=== PATIENT | male | born 1965 | race Caucasian/White ===

== ENCOUNTER → 2018-02-19 20:00 | Outpatient (CLI) | payer MEDICAID, SELFPAY ==
[2018-02-19] MEDS: Zolpidem Tartrate 5 MG Tablet PO (21:45)
== END ==
PROVIDERS: Family Provider Family Medicine; PCP Family Medicine
DX: G47.10 Hypersomnia, unspecified (principal); R06.83 Snoring
CPT/HCPCS: 95810

== ENCOUNTER → 2018-04-22 20:09 | Outpatient (CLI) | payer MEDICARE, MEDICAID, SELFPAY ==
[2018-04-22] MEDS: Zolpidem Tartrate 5 MG Tablet PO (22:00)
== END ==
PROVIDERS: Family Provider Family Medicine; PCP Family Medicine; Referring Provider Internal Medicine Pulmonary Disease; Visit Provider Internal Medicine Pulmonary Disease
DX: G47.33 Obstructive sleep apnea (adult) (pediatric) (principal)
CPT/HCPCS: 95811

== ENCOUNTER 2019-02-18 12:16 | Emergency (ER) | payer MEDICARE, MEDICAID, SELFPAY ==
[2019-02-18 12:20] VITALS: BP 129/81; PULSE 71; RESP 17; TEMP 36.8; O2SAT 98; BMI 25.9
--- NOTE | 2019-02-18 12:38 | CT_ITS ---
STUDY: CT ABDOMEN AND PELVIS WITH CONTRAST REASON FOR EXAM: Male, 53 years old. Epigastric pain. Diarrhea. RADIATION DOSAGE (If Supplied By Facility): CTDIvol = ( 16.99 ) mGy, DLP = ( 728.39 ) mGycm TECHNIQUE: Transaxial images were obtained from the dome of the diaphragm to the symphysis pubis without oral contrast. 100ml Isovue 370 was administered. Sagittal and coronal images were reconstructed. Individualized dose optimization techniques were used for this CT. COMPARISON: None. FINDINGS: The visualized lung bases are unremarkable. The visualized portions of the heart are within normal limits. Normal liver. There are surgical clips in the gallbladder fossa consistent with a prior cholecystectomy. Normal spleen. Normal pancreas. Normal bilateral adrenal glands. Normal right kidney. Normal left kidney. Normal visualized stomach. Normal small intestine. Normal colon. The appendix is visualized and appears normal. There is diffuse atherosclerotic calcification of the abdominal aorta, without a demonstrated aneurysm. Normal inferior vena cava. Normal retroperitoneum. Normal urinary bladder. There are prostatic calcifications. Normal abdominal wall. There are degenerative changes of the visualized lumbar spine. CT/Abdomen/Pelvis W IV Cont ONLY IMPRESSION: Status post cholecystectomy. No acute abnormality is seen. Electronically Signed: Tyrone Escalante, at 13:50 EST , Service support ,
[2019-02-18 13:03] LABS: Absolute Lymphocyte Count 3.26 X10^3/uL (0.83-4.51); Basophil# 0.07 X10^3/uL; Basophil% 0.7 % (0-1); Eosinophil# 0.44 X10^3/uL; Eosinophils% 4.6 % (0-5); Hematocrit 49.8 % (40-54); Lymphocyte # 3.26 X10^3/ul (4.0); Mean Corp Hgb Conc 34.1 g/dL (32-36); Mean Corpuscular Hgb 30.9 pg (27.0-32.0); Mean Corpuscular Volume 90.4 fL (80-94); Mean Platelet Vol. 10.2 fl (6.2-12.0); Monocyte# 0.82 X10^3/uL; Monocyte% 8.5 % (0-10); NRBC Flagged by Analyzer 0 % (0-5); Neutrophil # 4.97 X10^3/uL (2.7-7.7); Neutrophil % 51.8 % (47-70); Platelet Count 254 K/mm3 (150-450); RBC Distribution Width CV 13.2 % (11.6-14.6); RBC Distribution Width SD 43.7 fl (35.1-43.9); Red Blood Count 5.51 M/mm3 (4.6-6.2); White Blood Count 9.6 K/mm3 (4.4-11.0)
[2019-02-18 13:12] LABS: ALB/GLOB Ratio 1.1 RATIO (0.9-2.4); AST(SGOT) 24 U/L (15-37); Alanine Aminotransfer ALT/SGPT 25 U/L (16-61); Albumin, Serum 4.1 g/dL (3.2-5.0); Alkaline Phosphatase 105 U/L (45-117); Anion Gap 8 (5-15); BUN 20 mg/dL (7-18); BUN/Creat Ratio 20.4 RATIO (10-20); Calcium,Total 9.1 mg/dL (8.5-10.1); Chloride 108 mmol/L (98-107); Creatinine, Serum 0.98 mg/dL (0.70-1.30); EST Glomerular Filtration Rate 85 mL/min (>60); Est Glom Filt Rate - Afr Amer 103 mL/min (>60); Estimated Creatinine Clearance 91.04 ml/min; Globulin 3.9 g/dL (2.2-4.2); Glucose 88 mg/dL (74-106); Lipase 69 U/L (73-393); Sodium Level 139 mmol/L (136-145)
[2019-02-18 13:39] VITALS: BP 112/80; BP 122/92; BP 124/95; PULSE 59; PULSE 65; PULSE 75
[2019-02-18] MEDS: 0.9% Normal Saline 1,000 ML 1000 ML IV (13:42)
--- NOTE | 2019-02-18 14:36 | ED.DCSUM_ITS ---
- ER Visit Summary Date of Service: 02/18/19 Chief Complaint: Blood in stool History of Present Illness: The patient is a [address] iglesias. He reports that he has had chronic abdominal pain and diarrhea. He reports that both of these have been present for the past 5 to 6 months. He reports that he has diarrhea 5-6 times a day. He states that today he had one maroon-colored stool. He had not had blood previously. Patient reports that he has a diffuse sharp pain that is 9 out of 10 at worst and 3-10 currently. Is worsened by food and relieved by nothing. He said nausea without any vomiting. He has not had any work-up for this. He reports that he is scheduled to see director of strategic programs in [place] on March 10. He had a colonoscopy 4 to [address] White. No personal family history of Crohn's or ulcerative colitis. Physical Examination: Vitals: Stable. Afebrile. General: Well-nourished and well-developed. Head: Normocephalic atraumatic. Neck: Supple, no lymphadenopathy. No JVD. Nontender. Cardiovascular: Regular rate and rhythm. No murmurs. Respiratory: No respiratory distress. Clear to auscultation bilaterally. Abdominal: Soft, mild epigastric and suprapubic tenderness to palpation, nondistended, normal bowel sounds. No guarding, rebound, or peritoneal signs. Back: Nontender. Extremities: Nontender, no edema. Skin: Normal color, no rash. Neurologic: Alert and oriented ?3. Cranial nerves II through XII are intact. Normal strength and sensation. Psych: Normal affect. Test Results: CBC shows a hemoglobin of 17. Chem-7 shows a chloride 108 and BUN of 20. LFTs are normal. Lipase is normal. Clinical Impression(s) from Imaging Studies Abdomen/Pelvis CT 02/18/19 12:38 IMPRESSION: Status post cholecystectomy. No acute abnormality is seen. Electronically Signed: Tyrone Escalante, at 13:50 EST , Service support , Emergency Department Course and Treatment: Patient is resting comfortably. He refused pain and nausea medications. Treatment Plan: I discussed the patient his lab results. He does understand that is unlikely that he will get in to see director of strategic programs any sooner than previously scheduled. He is instructed to follow-up as scheduled. Return to the emergency department for worsening bleeding, worsening pain, or any other concerns. Disposition: To home in improved and stable condition. Impression: 1. Abdominal pain, chronic. 2. Diarrhea, chronic. 3. Stable lower GI bleed. This note was generated with [employer] dictation software. It may contain incorrect words, spelling, and punctuation that were not noted in review of the chart prior to signing ED Disposition - Plan for ED Patient: Disposition: Home or Assisted Living Instructions: RECTAL BLEED, Stable Referrals: Michael Ron MD [Primary Care Provider] - 3-5 Days Additional Instructions: Follow up with [facility] [employer] as soon as possible.
[2019-02-18 14:50] VITALS: BP 118/75; PULSE 64; RESP 16; O2SAT 97
== END 2019-02-18 14:50 | disposition home or self-care (01) ==
PROVIDERS: Emergency Provider Emergency Medicine; Family Provider Family Medicine; PCP Family Medicine
DX: K92.1 Melena (principal); K52.9 Noninfective gastroenteritis and colitis, unspecified; R10.13 Epigastric pain; G89.29 Other chronic pain; J44.9 Chronic obstructive pulmonary disease, unspecified; F17.200 Nicotine dependence, unspecified, uncomplicated
CPT/HCPCS: 74177; 80053; 83690; 85025; 99284; Q9967

== ENCOUNTER → 2022-03-21 | Outpatient (CLI) | payer MEDICARE, SELFPAY ==
--- NOTE | 2022-03-21 14:52 | CT_ITS ---
STUDY: LOW DOSE CT LUNG CANCER SCREENING REASON FOR EXAM: Male, 56 years old. SMOKER. The patient smoked 2 packs per day for 42 years. COPD and emphysema. RADIATION DOSAGE (If Supplied By Facility): CTDIvol = ( 2.39 ) mGy, DLP = ( 86.67 ) mGycm TECHNIQUE: No contrast was administered. Low dose technique was utilized (average mAS-38 and kVp 120). 1.25 mm axial source images with a slice interval of 1.25-mm were reconstructed in lung windows. 2.5 mm axial source images with a slice interval of 2.5-mm were reconstructed in lung windows. 5.0 mm axial source images with a slice interval of 5.0-mm were reconstructed in soft tissue windows. COMPARISON: None. NODULES: No suspicious nodule is seen. Emphysema: Hyperinflation. Emphysematous changes more prominent in the upper lobes. Minimal increase in markings at the left lung base suggestive of a scarring. Endobronchial lesion: Unremarkable Aorta: Minimal atherosclerotic plaque formation of the aortic arch. CORONARY ARTERIES: Coronary artery calcification is seen. Heart: Unremarkable Pulmonary artery: Unremarkable Mediastinal nodes: Unremarkable Other chest and abdominal findings: CT/Low Dose CT Lung Screening IMPRESSION: Lung-RADS category 2 - Continue annual screening with LDCT in 12 months. IMPORTANT NOTES FOR USE: ACR Lung-RADS Version 1.1 Assessment Categories Release Date: 2018 Category: Coded 0-4 bases on nodule(s) with highest degree of suspicion. Negative screen is defined as categories 1 and 2; a positive screen is defined as categories 3 and 4. Category 3 and 4A nodules that are unchanged on interval CT should be coded as category 2, and individuals returned to screening in 12 months. Category 4X: Category 3 or 4 nodules with additional imaging findings that increase the suspicion of lung cancer, such as spiculation, GGN that doubles in size in 1 year, enlarged lymph notes, etc. Category Modifiers: S (significant finding unrelated to lung cancer) Electronically Signed: Tyrone Escalante MD at 15:31 EST ,
== END | disposition home or self-care (01) ==
PROVIDERS: PCP Family Medicine
DX: F17.210 Nicotine dependence, cigarettes, uncomplicated (principal)
CPT/HCPCS: 71271

== ENCOUNTER → 2023-04-09 | Outpatient (CLI) | payer MEDICARE, MEDICAID, SELFPAY ==
--- NOTE | 2023-04-09 13:17 | CT_ITS ---
STUDY: LOW DOSE CT LUNG CANCER SCREENING REASON FOR EXAM: Male, 57 years old. One pack per day smoker x40 years RADIATION DOSAGE (If Supplied By Facility): CTDIvol = ( 3.02 ) mGy, DLP = ( 112.49 ) mGycm TECHNIQUE: No contrast was administered. Low dose technique was utilized (average mAS-38 and kVp 120). 1.25 mm axial source images with a slice interval of 1.25-mm were reconstructed in lung windows. 2.5 mm axial source images with a slice interval of 2.5-mm were reconstructed in lung windows. 5.0 mm axial source images with a slice interval of 5.0-mm were reconstructed in soft tissue windows. COMPARISON: 03/21/2022 FINDINGS: Lung windows show underlying single bleb formation in the upper lobes. Chronic interstitial changes noted in both lung piña with nonspecific pleural thickening and some thickening along the left fissure. No suspicious noncalcified mass or nodule. No organized infiltrate or effusion, no significant interval change since the previous study. Limited soft tissue windows show normal-appearing thyroid gland. Peripheral calcifications in the thoracic aorta without aneurysm. No calcified coronary vessels noted. Limited cuts through the upper abdomen do not show a suspicious abnormality. Bony structures show degenerative change CT/Low Dose CT Lung Screening IMPRESSION: Lung-RADS category 2 - Continue annual screening with LDCT in 12 months. IMPORTANT NOTES FOR USE: ACR Lung-RADS Version 1.1 Assessment Categories Release Date: 2018 Category: Coded 0-4 bases on nodule(s) with highest degree of suspicion. Negative screen is defined as categories 1 and 2; a positive screen is defined as categories 3 and 4. Category 3 and 4A nodules that are unchanged on interval CT should be coded as category 2, and individuals returned to screening in 12 months. Category 4X: Category 3 or 4 nodules with additional imaging findings that increase the suspicion of lung cancer, such as spiculation, GGN that doubles in size in 1 year, enlarged lymph notes, etc. Category Modifiers: S (significant finding unrelated to lung cancer) Electronically Signed: Subhash Bolaños MD at 19:23 EST ,
== END | disposition home or self-care (01) ==
LOC: CT 13:16
PROVIDERS: PCP Family Medicine
DX: Z12.2 Encounter for screening for malignant neoplasm of respiratory organs (principal); F17.210 Nicotine dependence, cigarettes, uncomplicated
CPT/HCPCS: 71271

== ENCOUNTER → 2024-07-27 | Outpatient (CLI) | payer MEDICARE, MEDICAID, SELFPAY ==
[2024-07-27 16:49] LABS: Absolute Lymphocyte Count 3.16 X10^3/uL (0.83-4.51); Absolute Neutrophil Count 7.4 X10^3/uL (2.0-7.7); Basophil% 0.8 % (0-1); Eosinophil# 0.31 X10^3/uL; Eosinophils% 2.6 % (0-5); Hematocrit 47.1 % (40-54); Hemoglobin 16.2 g/dL (13.0-16.5); Lymphocyte # 3.16 X10^3/ul (0.83-4.51); Lymphocyte % 26.7 % (19-41); Mean Corp Hgb Conc 34.4 g/dL (32-36); Mean Corpuscular Hgb 30.6 pg (27.0-32.0); Mean Corpuscular Volume 88.9 fL (80-94); Mean Platelet Vol. 10.8 fl (6.2-12.0); Monocyte# 0.79 X10^3/uL; Monocyte% 6.7 % (0-10); NRBC Flagged by Analyzer 0 % (0-5); Neutrophil # 7.41 X10^3/uL (2.7-7.7); Neutrophil % 62.8 % (47-70); Platelet Count 341 K/mm3 (150-450); RBC Distribution Width CV 13.3 % (11.6-14.6); RBC Distribution Width SD 43.3 fl (35.1-43.9); White Blood Count 11.8 K/mm3 (4.4-11.0)
== END | disposition home or self-care (01) ==
LOC: LAB 15:15
PROVIDERS: PCP Family Medicine; Referring Provider Nurse Practitioner Acute Care; Visit Provider Nurse Practitioner Acute Care
DX: K62.5 Hemorrhage of anus and rectum (principal)
CPT/HCPCS: 36415; 85025

== ENCOUNTER → 2024-09-14 | Outpatient (CLI) | payer MEDICARE, MEDICAID, SELFPAY ==
[2024-09-14 11:14] LABS: Cholesterol 176 mg/dL (<=200); Low Density Lipoprotein Calc. 121 mg/dL; Triglycerides 117 mg/dL; Very Low Density Lipoprotein 23 mg/dL (5-40); cholesterol:hdl ratio screen 5.57
[2024-09-14 11:24] LABS: AST(SGOT) 33 U/L (<=37); Alanine Aminotransfer ALT/SGPT 24 U/L (<=46); Albumin, Serum 4.1 g/dL (3.5-5.0); Alkaline Phosphatase 124 U/L (40-129); Anion Gap 15 (5-15); BUN 14 mg/dL (4-19); BUN/Creat Ratio 13.8 RATIO (10-20); Calcium,Total 9.0 mg/dL (7.6-11.0); Carbon Dioxide 17.8 mmol/L (21.0-32.0); Chloride 105 mmol/L (98-108); Globulin 3.4 g/dL (2.2-4.2); Glucose 94 mg/dL (70-99); Potassium 4.1 mmol/L (3.3-5.1)
== END | disposition home or self-care (01) ==
LOC: LAB 09:35
PROVIDERS: PCP Family Medicine; Referring Provider Internal Medicine Cardiovascular Disease; Visit Provider Internal Medicine Cardiovascular Disease
DX: R07.9 Chest pain, unspecified (principal)
CPT/HCPCS: 36415; 80053; 80061

== ENCOUNTER → 2024-09-15 | Outpatient (CLI) | payer MEDICARE, MEDICAID, SELFPAY ==
--- NOTE | 2024-09-15 13:06 | ECHOD_ITS ---
Reason For Study Reason For Study: Chest Pain Procedure This was a 2D Doppler, Color Flow transthoracic echocardiogram. Exam performed in department. Left Ventricle Normal size and thickness. The LV ejection fraction is 60 %. No evidence for diastolic dysfunction. Right Ventricle Normal right ventricle. Atria The left and right atria are normal. Mitral Valve Trivial mitral valve insufficiency. Tricuspid Valve Trivial tricuspid valve insufficiency. Unable to estimate RV systolic pressure due to insufficient tricuspid regurgitant envelope. Aortic Valve Trisinus/trileaflet aortic valve. Pulmonic Valve The pulmonic valve is not well visualized. Great Vessels Normal sized aortic root. Pericardium/Pleural No pericardial effusion. MMode/2D Measurements & Calculations LVIDd: 4.6 cm IVSd: 0.90 cm Ao root diam: 3.6 cm LVIDs: 2.9 cm LVPWd: 0.89 cm RVDd: 3.1 cm FS: 36.4 % LAV(MOD-bp): 27.4 ml LVAd ap4: 28.2 cm2 SV(MOD-sp4): 53.5 ml LAV(MOD-bp) Indexed: 13.4 ml/m2 LVLd ap4: 8.3 cm SI(MOD-sp4): 26.2 ml/m2 LAV(MOD-sp2): 24.8 ml EDV(MOD-sp4): 82.4 ml LAV(MOD-sp4): 27.0 ml EDV(sp4-el): 81.0 ml LVAs ap4: 15.6 cm2 LVLs ap4: 7.1 cm ESV(MOD-sp4): 28.9 ml ESV(sp4-el): 29.1 ml EF(MOD-sp4): 65.0 % EF(sp4-el): 64.1 % SV(sp4-el): 51.9 ml LA A4 area: 12.2 cm2 LA dimension(2D): 3.0 cm RA A4 area: 13.1 cm2 TAPSE: 1.7 cm Time Measurements MV dec time: 0.19 sec Doppler Measurements & Calculations MV E max taqueria: 59.6 cm/sec Lat Peak E' Taqueria: 12.5 cm/sec Med Peak E' Taqueria: 10.0 cm/sec MV A max taqueria: 48.9 cm/sec E/E' lat: 4.8 E/E' med: 6.0 MV E/A: 1.2 MV V2 max: 64.1 cm/sec MV P1/2t max taqueria: 62.1 cm/sec Ao V2 max: 100.3 cm/sec MV max P.6 mmHg MV P1/2t: 60.0 msec Ao max P.0 mmHg MV V2 mean: 40.6 cm/sec Ao V2 mean: 67.3 cm/sec MV mean P.76 mmHg MV dec slope: 303.4 cm/sec2 Ao mean P.1 mmHg MV V2 VTI: 20.7 cm MVA(P1/2t): 3.7 cm2 Ao V2 VTI: 20.5 cm AV (velocity ratio): 1.1 LV V1 max: 97.0 cm/sec LV V1 max P.8 mmHg LV V1 mean P.0 mmHg LV V1 mean: 66.2 cm/sec LV V1 VTI: 23.1 cm ECHO/Echo Complete Interpretation Summary The LV ejection fraction is 60 %. No evidence for diastolic dysfunction. Ordering Physician: Maryann Ashraf Referring Physician: Maryann Ashraf Performed By: José Manuel William [facility]
== END | disposition home or self-care (01) ==
LOC: CVS 13:03
PROVIDERS: PCP Family Medicine; Referring Provider Internal Medicine Cardiovascular Disease; Visit Provider Internal Medicine Cardiovascular Disease
DX: R07.9 Chest pain, unspecified (principal)
CPT/HCPCS: 93306

== ENCOUNTER 2024-09-21 08:23 | Outpatient (CLI) | payer MEDICARE, MEDICAID, SELFPAY ==
--- NOTE | 2024-09-21 08:26 | CT_ITS ---
PROCEDURE: LIMITED CHEST CT CARDIAC ONLY 09/21/2024 REASON FOR EXAM: CHEST PAIN TECHNIQUE: LIMITED CHEST CT CARDIAC ONLY CONTRAST: 60 cc of Isovue 370 injected intravenously. One or more dose reduction techniques were used (e.g., Automated exposure control, adjustment of the mA and/or kV according to patient size, use of iterative reconstruction technique). RADIATION DOSE SUMMARY: CTDlvol: 23 mGy DLP: 1318.62 mGycm COMPARISON: None FINDINGS: Coronary artery calcification. Atherosclerotic calcification of the aortic arch. The lungs are clear. CT/Limited Chest CT Cardiac Only IMPRESSION: Coronary artery calcification. Reading Location: [place] [id number]
[2024-09-21 08:39] VITALS: BP 101/71; PULSE 70; RESP 16; O2SAT 97; BMI 25.7
[2024-09-21 09:00] VITALS: BP 118/74; PULSE 65; RESP 18; O2SAT 99
--- NOTE | 2024-09-21 18:57 | CCTA.WCONT ---
CCTA w/Cont Coronary Arteries Date of Study:: 09/21/24 Chest pain Coronary Calcium Scoring: High-resolution Computed Tomographic imaging of the chest was performed on [09/21/2024], with particular attention paid to the coronary arteries. Intravenous contrast agent was administered per protocol and images reconstructed and displayed. LEFT MAIN CORONARY ARTERY: This arose from the left coronary cusp and bifurcates to left anterior descending artery and left circumflex artery. No significant stenosis was noted in this vessel. [] LEFT ANTERIOR DESCENDING CORONARY ARTERY: Medium size vessel arising from the left main coronary artery. This vessel gave all 3 diagonal vessels with no significant stenosis noted. There was mild eccentric proximal calcification noted. [] LEFT CIRCUMFLEX CORONARY ARTERY: This arose from the left coronary main artery. It continued giving off obtuse marginal vessel with mild eccentric calcification noted in the proximal region. No high-grade stenosis was noted in this vessel or significant atherosclerotic plaquing. [] RIGHT CORONARY ARTERY: Dominant vessel arising from the right coronary cusp coursing and giving off the posterior descending artery and posterolateral vessel. No significant stenosis were noted. [] THORACIC AORTA: Normal size [] PULMONARY ARTERY: [] LEFT ATRIUM/APPENDAGE: [] MITRAL VALVE: [] AORTIC VALVE: Trileaflet [] LEFT VENTRICLE: [] CORONARY CALCIUM SCORE: 6.75 [] Findings Coronary Artery Left Main (LM): 0 Left Anterior Descending (LAD): 2.78 Left Circumflex (LCX): 3.97 Right Coronary Artery (RCA): 0 Total Agatston Score: 6.75 Percentile Rankinth the 50th percentile Calcium Scoring Interpretation: Different methods to categorize the overall amount of coronary plaque. Overall amount CAC SIS Visual of coronary plaque P1 Mild -100 <2 1-2 vessels with mild amount of plaque P2 Moderate 101-300 3-4 1-2 vessels with moderate amount, 3 vessels with mild amount of plaque P3 Severe 301-999 5-7 3 vessels with moderate amount, 1 vessel with severe amount of plaque P4 Extensive >1000 >8 2-3 vessels with severe amount of plaque Calcium Score: Mild: 1-2 vessels w/mild amount of plaque Conclusion: Mild atherosclerotic plaquing noted in the left anterior descending artery and circumflex artery. No coronary obstruction lesion noted
== END 2024-09-21 23:59 | disposition home or self-care (01) ==
LOC: CT 08:25
PROVIDERS: PCP Family Medicine; Referring Provider Internal Medicine Cardiovascular Disease; Visit Provider Internal Medicine Cardiovascular Disease
DX: R07.9 Chest pain, unspecified (principal); I25.10 Atherosclerotic heart disease of native coronary artery without angina pectoris
CPT/HCPCS: 75571; 75574; 76380

== ENCOUNTER 2024-09-28 08:03 | Day surgery (SDC) | payer MEDICARE, MEDICAID, SELFPAY ==
--- NOTE | 2024-09-26 16:31 | PAT.ANE_ITS ---
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 When Was Last Pacemaker Check QUESTION #4 FULL TEXT: You/Your Family Experience fever (hyperthermia) with Anesthesia Last Oral Intake Last Oral intake: Last Oral Intake NPO since Meds taken in AM with sips of water? 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 commissioner Female No 09/26/24 13:11 HX of Motion Sickness Yes 09/26/24 13:11 HX of N/V After Surgery No 09/26/24 13:11 Non-Smoker No 09/26/24 13:11 Duration of Surgery greater No 09/26/24 13:11 than 60 minutes Number of Risk Factors 1 09/26/24 13:11 PONV Score Low Risk 09/26/24 13:11 Height & Weight Height & Weight: Anesthesia: Height & Weight Height 5 ft 11 in 07/27/24 14:48 Respiratory Assessment Respiratory Assessment - railroad commissioner: Respiratory Tract Infection Hx - railroad commissioner Hx Respiratory Tract Infection No 09/26/24 13:11 STOP Sleep Apnea STOP Sleep Apnea - railroad commissioner: STOP Sleep Apnea - railroad commissioner Hx Hypertension No 09/26/24 13:11 Hx Sleep Apnea Yes: UNABLE TO WEAR MASK 09/26/24 13:11 CPAP No 09/26/24 13:11 BIPAP No 09/26/24 13:11 Do you snore loudly (louder than talking or can be heard Do you often feel tired/ fatigued/ sleepy during daytime? Has anyone observed you stop breathing during sleep? STOP Results Positive 09/26/24 13:11 QUESTION #5 FULL TEXT : Do you snore loudly (louder than talking or can be heard through closed doors)? 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 Specify any problems Hx of Preganancy in last 3 N/A 09/26/24 13:11 Months Nurse Filling Out Transfusion EHNAOMA 09/26/24 13:11 & Questions: Date: 09/26/24 09/26/24 13:11 Time: 13:18 09/26/24 13:11 Patient unable to answer at this time (ie. confused, unrespo /Reproduction History /Reproductive History - railroad commissioner: /Reproductive Hx- railroad commissioner Hx Now No 09/26/24 13:11 Gestational Age (in weeks): EDC: Hx Hx Para Hx Section SAB No 09/26/24 13:11 PFSH Medical History Chest pain Wears glasses Marijuana use High cholesterol History of diverticulitis Gastric reflux Smoker Sleep apnea History of stress test History of echocardiogram Cardiology follow-up encounter YEHUDA (obstructive sleep apnea) Chest pain Tobacco use disorder, continuous Diverticulitis Adenomatous polyps GERD (gastroesophageal reflux disease) Depression Agoraphobia History of GI bleed Hearing problem Gastrointestinal problem Emphysema lung Back problem Alcohol abuse Home Medications Medication Instructions Recorded Last Taken Type risperidone 2 mg tablet 2 mg PO QDAY 07/27/24 Unknow n History albuterol sulfate 90 mcg/actuation 2 puff inhalation Q 4H PRN 09/01/24 Unknown History aerosol inhaler shortness of breath or wheez ing fluticasone furoate 200 1 ea inhalation DAILY Unknown History mcg-vilanterol 25 mcg/dose inhalation powder (Breo Ellipta) rosuvastatin 5 mg tablet 5 mg PO QDAY #30 tabs Unknown Rx peg 3350-sod [id number] See Rx Instructions PO .COMPLEX #2 09/26/24 Unknown Rx 178.7-7.3-0.5-1.12-0.9 gram oral mL soln (Suflave) Allergy/AdvReac Type Severity Reaction Status Date / Time clonazepam (From Klonopin) Allergy Other Verified 09/26/24 13:09 latex Allergy Unknown Verified 09/26/24 13:09 quetiapine (From Seroquel) Allergy Other Verified 09/26/24 13:09 Family History Father , mid 40's Myocardial infarction Alcoholism Mother Breast cancer Sister Breast cancer COPD (chronic obstructive pulmonary disease) Grandfather Emphysema lung Surgical History History of esophagogastroduodenoscopy (EGD) History of colonoscopy History of appendectomy Hx of cholecystectomy Social History Smoking Status: Current every day smoker tobacco type: cigarettes alcohol intake: former substance use type: does not use and marijuana frequency: 1-2 times per week Audit: Pertinent Findings Pertinent Findings EKG Perinent findings: EKG done on 09/13/2024 demonstrates normal sinus rhythm. Stress test pertinent findings: Patient had a stress test done on 10/08/2011 that was negative for evidence of ischemia. Echo (EF%) pertinent findings: Echocardiogram 09/20/2024: LVEF of 60%, no evidence for diastolic dysfunction. Additional pertinent findings: Patient had a cardiac CT CAP CT scan that demonstrated Agaston score of 6.75 Recommendation Anesthesia Recommendation Anesthesia recommendation: OPTIMIZED for anesthesia
[2024-09-28] VITALS (9 sets, daily range): BP systolic 85–105; BP diastolic 61–74; PULSE 68–92; RESP 16–18; TEMP 36–36.1; O2SAT 92–97; BMI 25.2
[2024-09-28] MEDS: Lactated Ringers 1,000 ML 15 ML IV (08:41)
--- NOTE | 2024-09-28 09:05 | PCM.PRE.AN2 ---
ASA Classification* ASA Classification ASA Classification: 3 Assessment & Plan Anesthesia* Anesthesia Assessment Anesthesia Assessment: Discussed sedation and/or anesthesia options, risks, benefits, and alternatives with patient/parents/legal guardian/POA. Questions invited. The patient/parents/legal guardian/POA seems to understand and agrees to proceed with anesthesia plan. Reviewed the physical assessment, medical history, allergy history and patient home medications list prior to surgery/procedure/anesthetic and documented any changes. Performed airway and anesthesia risk assessments. Anesthesia Type Anesthesia Type: MAC History Source History Obtained from:: Patient and Chart Anesthesia Focused Assessment* Temperature: 96.8 F Pulse Rate: 92 Blood Pressure: 105/74 Respiratory Rate: 18 Pulse Ox: 97 Oxygen Delivery Method: Room Air Airway Assessment Mouth opens: >3 cm Mallampati Score: I Teeth Condition: Chipped/Broken and Missing Neck Range of motion (ROM): Full ROM Labs Anesthesia Preop lab: CBC WBC 11.8 K/mm3 (4.4-11.0) H 07/27/24 15:25 07/27/24 RBC 5.30 M/mm3 (4.6-6.2) 07/27/24 15:25 07/27/24 Hgb 16.2 g/dL (13.0-16.5) 07/27/24 15:25 07/27/24 Hct 47.1 % (40-54) 07/27/24 15:25 07/27/24 Plt Count 341 K/mm3 (150-450) 07/27/24 15:25 07/27/24 CHEMISTRY Potassium 4.1 mmol/L (3.3-5.1) 09/14/24 09:38 09/14/24 Sodium 138 mmol/L (133-145) 09/14/24 09:38 09/14/24 BUN 14 mg/dL (4-19) 09/14/24 09:38 09/14/24 Creatinine 1.01 mg/dL (0.70-1.20) 09/14/24 09:38 09/14/24 Glucose 94 mg/dL (70-99) 09/14/24 09:38 09/14/24 COAG Pre-Assessment Diagnosis/Proposed Procedure Planned Operative Procedure(s): COLONOSCOPY Anesthesia History Anesthesia History - custom shoemaker: Anesthesia History - custom shoemaker Hx Hospitalization No 09/26/24 13:11 Any Problems With Anesthesia No 09/26/24 13:11 Cholinesterase deficiency No 09/26/24 13:11 You/Your Family Experience No 09/26/24 13:11 fever (hyperthermia) with Relationship Recent Exposure to Contagious No 09/28/24 08:32 Disease Does patient have nerve No 09/26/24 13:11 stimulator Patient instructed to have device shut off --Does patient have Pacemaker No 09/28/24 08:32 or ICD? When Was Last Pacemaker Check QUESTION #4 FULL TEXT: You/Your Family Experience fever (hyperthermia) with Anesthesia Last Oral Intake Last Oral intake: Last Oral Intake NPO since Meds taken in AM with sips of water? Meds patient instructed to take am of surgery PONV PONV - custom shoemaker: PONV - custom shoemaker Female No 09/26/24 13:11 HX of Motion Sickness Yes 09/26/24 13:11 HX of N/V After Surgery No 09/26/24 13:11 Non-Smoker No 09/26/24 13:11 Duration of Surgery greater No 09/26/24 13:11 than 60 minutes Number of Risk Factors 1 09/26/24 13:11 PONV Score Low Risk 09/26/24 13:11 Height & Weight Height & Weight: Anesthesia: Height & Weight Height 5 ft 11 in 09/28/24 08:32 Weight: 82 kg 09/28/24 08:32 Body Mass Index (BMI) 25.2 09/28/24 08:32 Respiratory Assessment Respiratory Assessment - custom shoemaker: Respiratory Tract Infection Hx - custom shoemaker Hx Respiratory Tract Infection No 09/26/24 13:11 STOP Sleep Apnea STOP Sleep Apnea - custom shoemaker: STOP Sleep Apnea - custom shoemaker Hx Hypertension No 09/26/24 13:11 Hx Sleep Apnea Yes: UNABLE TO WEAR MASK 09/26/24 13:11 CPAP No 09/26/24 13:11 BIPAP No 09/26/24 13:11 Do you snore loudly (louder than talking or can be heard Do you often feel tired/ fatigued/ sleepy during daytime? Has anyone observed you stop breathing during sleep? STOP Results Positive 09/26/24 13:11 QUESTION #5 FULL TEXT : Do you snore loudly (louder than talking or can be heard through closed doors)? 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 Specify any problems Hx of Preganancy in last 3 N/A 09/26/24 13:11 Months Nurse Filling Out Transfusion [facility] 09/26/24 13:11 & Questions: Date: 09/26/24 09/26/24 13:11 Time: 13:18 09/26/24 13:11 Patient unable to answer at this time (ie. confused, unrespo /Reproduction History /Reproductive History - custom shoemaker: /Reproductive Hx- custom shoemaker Hx Now No 09/26/24 13:11 Gestational Age (in weeks): EDC: Hx Hx Para Hx Section SAB No 09/26/24 13:11 Active Medications Active Medications: Current Medications Generic Name Dose Route Start Last Admin Trade Name Freq PRN Reason Stop Dose Admin Lactated Ringer's 1,000 mls @ 15 mls/hr 09/28/24 08:15 09/28/24 08:41 IV 15 mls/hr .Q48H HÉCTOR Administration PFSH Medical History Chest pain Wears glasses Marijuana use High cholesterol History of diverticulitis Gastric reflux Smoker Sleep apnea History of stress test History of echocardiogram Cardiology follow-up encounter YEHUDA (obstructive sleep apnea) Chest pain Tobacco use disorder, continuous Diverticulitis Adenomatous polyps GERD (gastroesophageal reflux disease) Depression Agoraphobia History of GI bleed Hearing problem Gastrointestinal problem Emphysema lung Back problem Alcohol abuse Home Medications Medication Instructions Recorded Last Taken Type risperidone 2 mg tablet 2 mg PO QDAY 07/27/24 09/27/24 History albuterol sulfate 90 mcg/actuation 2 puff inhalation Q4H PRN 09/01/24 09/27/24 History aerosol inhaler shortness of breath or wheezing fluticasone furoate 200 1 ea inhalation DAILY 09/01/24 09/26/24 History mcg-vilanterol 25 mcg/dose inhalation powder (Breo Ellipta) rosuvastatin 5 mg tablet 5 mg PO QDAY #30 tabs 09/22/24 09/27/24 Rx peg 3350-sod sulf,xywso-zrh-onj 240 ml PO .COMPLEX #2 mL 09/27/24 Unknown Rx 178.7-7.3-0.5-1.12-0.9 gram oral soln (Suflave) Allergy/AdvReac Type Severity Reaction Status Date / Time clonazepam (From Klonopin) Allergy Other Verified 09/28/24 08:30 latex Allergy Unknown Verified 09/28/24 08:30 quetiapine (From Seroquel) Allergy Other Verified 09/28/24 08:30 Family History Father , mid 40's Myocardial infarction Alcoholism Mother Breast cancer Sister Breast cancer COPD (chronic obstructive pulmonary disease) Grandfather Emphysema lung Surgical History History of esophagogastroduodenoscopy (EGD) History of colonoscopy History of appendectomy Hx of cholecystectomy Social History Smoking Status: Current every day smoker tobacco type: cigarettes alcohol intake: former substance use type: does not use and marijuana frequency: 1-2 times per week Review of Systems (Anesthesia) ROS Narrative System reviewed and no additional complaints, except as documented. Physical Exam Const alert and oriented x3 Resp normal respiratory effort Auscultation: wheezes Cardio regular rate and regular rhythm
--- NOTE | 2024-09-28 09:15 | COLBX_PTH ---
PATIENT: KAITLYN DUBON LOC: EN U#:[id number] AGE/SX: 59/M ROOM: RE09/28/[address]: Dr. Chevy Almanzar DO : 1965 BED: DIS: 09/28/2024 SPEC #: [id number] RECD: 09/28/24 10:42 STATUS: NOAH JAMAL #: [id number] DOMONIQUE: 09/28/24 09:[address]: Chevy Almanzar DEPT: SURGICAL PATHOLOGY RECD BY: John Samayoa ENTERED: 09/28/24 12:13 SP TYPE: COLON BX OT DR: Dr. Michael Ron MD Tissues: A - Transverse colon B - Rectum, NOS Procedures: Surgery Specimen Level IV HEADER OPERATION: Colonoscopy with polypectomy, biopsy and hemorrhoids banding PRE-OP DIAGNOSIS: History of colonic polyps, rectal bleeding, abdominal pain TISSUE SUBMITTED: A- Transverse colon polyp, B- Rectal polyp biopsy MICROSCOPIC DIAGNOSIS A. Transverse colon, polyp, biopsy: Serrated lesion (sessile serrated adenoma/polyp). B. Rectum, polyp, biopsy: Hyperplastic polyp. MICROSCOPIC DESCRIPTION Slides are reviewed. GROSS DESCRIPTION A. Received in fixative is one container labeled with the patient's name and designated "Transverse colon polyp." The specimen consists of one irregular fragment of light bran soft tissue that measures 0.6 x 0.5 x 0.2 cm. The specimen is totally submitted in one cassette. B. Received in fixative is one container labeled with the patient's name and designated "Rectal polyp biopsy." The specimen consists of one irregular fragment of light bran soft tissue that measures 0.2 cm. The specimen is totally submitted in one cassette. [facility] 09/28/2024 CPT:39028j9
--- NOTE | 2024-09-28 09:26 | PCM.HP.STD ---
HPI - General General Date of Admission: 09/28/24 Date of Service: 09/28/24 Chief Complaint: Abdominal pain and history of polyps HPI Narrative KAITLYN DUBON, is a 59 M who presents with the Chief Complaint: abdominal complaints COLON & EGD 03/10/2019 - Dr. Grossman - ([place]) 1. Colon, ascending polyp x2, biopsy (A) - Multiple fragments of tubular adenoma. 2. Colon, descending polyp, biopsy (B) - Tubular adenoma. 3. Stomach, biopsy (C) - Gastric oxyntic-type mucosa with no pathologic diagnostic abnormality; see comment. 4. Duodenum, biopsy (D) - Duodenal mucosa with no pathologic diagnostic abnormality; negative for celiac disease, granulomas and dysplasia. - couple months ago he reports having a very large amount of blood in the stool "in the stool itself like a candy cane" - marijuana use 1-2x a week - h/o alcohol abuse - denies any alcohol use in 25 years - tobacco use daily - H/O abscess surgery 05/14/2022 - states this was caused by the black mold -----Dr. Jules Skin and soft tissue, "fistula", biopsy: - Scar and chronic inflammation. - H/O CCX - c/o nausea, diarrhea, constipation, change in bowel habits, abdominal pain, blood in stool, gas/bloating, heartburn, fatigue, fevers, itching - the black mold messed up his brain - was on psych meds at one time - current c/o anxiety, depression, hyperactivity and paranoia - reports his previous GI doctor told him he does not have Crohn's but he does have diverticulosis and GERD - denies any recurrent bleeding - reports he is changing his diet and this causes change in bowels - coffee causes diarrhea - reports he has intermittent flare ups of abdominal distension, back ache and headache, during the flare up he cannot have a BM, symptoms last up to 12 hours and improves with drinking warm prune juice - reports he has a BM daily - "my heart hurts every time I lay on my left side" x2-3 months - reports SOB is stable h/o COPD/Emphysema - no worse - reports walking any amount of distance causes him to be feel terrible PFSH Medical History Chest pain Wears glasses Marijuana use High cholesterol History of diverticulitis Gastric reflux Smoker Sleep apnea History of stress test History of echocardiogram Cardiology follow-up encounter YEHUDA (obstructive sleep apnea) Chest pain Tobacco use disorder, continuous Diverticulitis Adenomatous polyps GERD (gastroesophageal reflux disease) Depression Agoraphobia History of GI bleed Hearing problem Gastrointestinal problem Emphysema lung Back problem Alcohol abuse Home Medications Medication Instructions Recorded Last Taken Type risperidone 2 mg tablet 2 mg PO QDAY 07/27/24 09/27/24 History albuterol sulfate 90 mcg/actuation 2 puff inhalation Q4H PRN 09/01/24 09/27/24 History aerosol inhaler shortness of breath or wheezing fluticasone furoate 200 1 ea inhalation DAILY 09/01/24 09/26/24 History mcg-vilanterol 25 mcg/dose inhalation powder (Breo Ellipta) rosuvastatin 5 mg tablet 5 mg PO QDAY #30 tabs 09/22/24 09/27/24 Rx peg 3350-sod sulf,blksd-fxq-mey 240 ml PO .COMPLEX #2 mL 09/27/24 Unknown Rx 178.7-7.3-0.5-1.12-0.9 gram oral soln (Suflave) Allergy/AdvReac Type Severity Reaction Status Date / Time clonazepam (From Klonopin) Allergy Other Verified 09/28/24 08:30 latex Allergy Unknown Verified 09/28/24 08:30 quetiapine (From Seroquel) Allergy Other Verified 09/28/24 08:30 Family History Father , mid 40's Myocardial infarction Alcoholism Mother Breast cancer Sister Breast cancer COPD (chronic obstructive pulmonary disease) Grandfather Emphysema lung Surgical History History of esophagogastroduodenoscopy (EGD) History of colonoscopy History of appendectomy Hx of cholecystectomy Social History Smoking Status: Current every day smoker tobacco type: cigarettes alcohol intake: former substance use type: does not use and marijuana frequency: 1-2 times per week ROS Constitutional Constitutional: Denies fatigue, fever(s), poor appetite, weight gain or weight loss Gastrointestinal Gastrointestinal: Denies belching, bloating, change in bowel habits, change in stool character, chewing difficulty, coffee ground emesis, constipation, cramping, diarrhea, dyspepsia, dysphagia, early satiety, excessive flatus, fecal incontinence, heartburn, hematemesis, hematochezia, hemorrhoids, loose stools, melena, nausea, odynophagia, rectal bleeding, tenesmus, vomiting or weight changes Vital Signs Vital Signs Vital Signs: 09/28/24 08:32 09/28/24 08:32 09/28/24 09:14 Temperature 96.8 F L 96.8 F L Temperature Source Temporal Pulse Rate 92 92 Respiratory Rate 18 18 Respiratory Pattern Normal Blood Pressure 105/74 105/74 Blood Pressure Mean 84 Blood Pressure Source Monitor Blood Pressure Position Semi-Fowlers Blood Pressure Location Left Arm Pulse Ox 97 97 Oxygen Delivery Method Room Air Room Air Weight Weight: 180 lb 12.465 oz Body Mass Index (BMI) 25.2 Physical Exam Const alert, oriented x3, no apparent distress and healthy appearing General Appearance: cooperative GI normal to inspection, nondistended, normoactive bowel sounds, soft to palpation, non-tender and non-distended Percussion: normal to percussion Rectal Exam: deferred Assessment & Plan Assessment/Plan (1) History of colonic polyps: (2) Rectal bleeding: (3) Abdominal pain: PLAN: Assessment and Plan Assessment and Plan (1) Abdominal symptoms: (2) Rectal bleeding: Status: Acute (3) Constipation: Status: Acute Orders: Orders CBC W/Diff, Automated Today K62.5 - Hemorrhage of anus and rectum Medications: New peg 3350-sod sulf,elbh-wmn-roq 178.7-7.3-0.5 gram (Suflave) PO 2 mL 0RF ondansetron HCl 4 mg orally; take two tablets PO two hours prior to start of bowel prep and one every 4 hours as needed for N/V 5 tabs 0RF Plan 59-year-old male presents for initial consultation to establish GI care with a history of GERD, diverticulosis, and recent episode of rectal bleeding two months ago. He was previously seen by psychiatric security nurse in [place], [place] and requested to establish closer to home. Colonoscopy and EGD were performed in 2019; tubular adenomas were noted in the colon. He has a history of rectal fistula in 2022 with surgical repair by Dr. Jules. He reports capsule endoscopy was negative for Crohn's disease. He has intermittent episodes of abdominal distention with backache; symptoms resolved with drinking warm prune juice and elimination of stool. I have scheduled him for a colonoscopy and he will complete a CBC today. He complains of, "my heart hurts every time I lay on my left side" and chest pain x 2 to 3 months. He will follow-up with PCP. Note: [employer] speech recognition chief vendor quality software was used to create portions of this document. Sound-alike and misspelled words, as well as other chief vendor quality errors may be contained in the documentation. Patient Instructions: Colon - SuFlave CBC today High fiber diet encouraged with increased water intake Smoking cessation recommended - https://www.cdc.gov/tobacco/about/how-to-quit.html Follow-up with PCP for c/o chest pain x2-3 months
--- NOTE | 2024-09-28 10:05 | OP.CCLET_ITS ---
09/28/2024 Michael Ron Re : Colonoscopy procedure for Louie Marti Dear Asaf This procedure was performed on Saturday, September 28, 2024. My impressions and recommendations are as follows: Impressions : - Hemorrhoids found on perianal exam. - One 9 mm polyp in the transverse colon, removed with a hot snare. Resected and retrieved. - One 4 mm polyp in the rectum, removed with a jumbo cold forceps. Resected and retrieved. - Diverticulosis in the recto-sigmoid colon, in the sigmoid colon, at the splenic flexure and in the transverse colon. - Internal hemorrhoids. Banded. - The examination was otherwise normal on direct and retroflexion views. Recommendations : - Discharge patient to home. - Resume previous diet. - Continue present medications. - Await pathology results. - Repeat colonoscopy in 5 years for surveillance. My findings are described in the full procedure note, which is enclosed. If I can be of further assistance, please feel free to contact me at . Sincerely, Chevy Almanzar, 09/28/2024 10:04:54 AM This report has been signed electronically.
--- NOTE | 2024-09-28 10:05 | OP.COLON_ITS ---
Patient Name: Louie Marti Procedure Date: 09/28/2024 9:34 AM Date of : 1965 Age: 59 Procedure: Colonoscopy Indications: High risk colon cancer surveillance: Personal history of colonic polyps Providers: Chevy Almanzar DO Referring MD: Michael Ron Medicines: Monitored Anesthesia Care Patient Profile: This is a 59 year old male. Refer to note in patient chart for documentation of history and physical. Last Colonoscopy: 5 years ago. Complications: No immediate complications. Procedure: Pre-Anesthesia Assessment: - Prior to the procedure, a History and Physical was performed, and patient medications and allergies were reviewed. The patient is competent. The risks and benefits of the procedure and the sedation options and risks were discussed with the patient. All questions were answered and informed consent was obtained. Patient identification and proposed procedure were verified by the physician in the pre-procedure area. Mental Status Examination: alert and oriented. Airway Examination: normal oropharyngeal airway and neck mobility. Respiratory Examination: clear to auscultation. CV Examination: normal. Prophylactic Antibiotics: The patient does not require prophylactic antibiotics. Prior Anticoagulants: The patient has taken no anticoagulant or antiplatelet agents except for NSAID medication. ASA Grade Assessment: II - A patient with mild systemic disease. After reviewing the risks and benefits, the patient was deemed in satisfactory condition to undergo the procedure. The anesthesia plan was to use monitored anesthesia care (MAC). Immediately prior to administration of medications, the patient was re-assessed for adequacy to receive sedatives. The heart rate, respiratory rate, oxygen saturations, blood pressure, adequacy of pulmonary ventilation, and response to care were monitored throughout the procedure. The physical status of the patient was re-assessed after the procedure. After I obtained informed consent, the scope was passed under direct vision. Throughout the procedure, the patient's blood pressure, pulse, and oxygen saturations were monitored continuously. The Colonoscope was introduced through the anus and advanced to the terminal ileum. The colonoscopy was performed without difficulty. The patient tolerated the procedure well. The quality of the bowel preparation was adequate. The terminal ileum, ileocecal valve, appendiceal orifice, and rectum were photographed. Scope In: 9:41:36 AM Scope Withdrawal Time 0 hours 12 minutes 55 seconds Scope Out: 9:58:20 AM Total Procedure Duration Time 0 hours 16 minutes 44 seconds Findings: Hemorrhoids were found on perianal exam. A 9 mm polyp was found in the transverse colon. The polyp was sessile. The polyp was removed with a hot snare. Resection and retrieval were complete. Verification of patient identification for the specimen was done. Estimated blood loss was minimal. A 4 mm polyp was found in the rectum. The polyp was sessile. The polyp was removed with a jumbo cold forceps. Resection and retrieval were complete. Verification of patient identification for the specimen was done. Estimated blood loss was minimal. A few small-mouthed diverticula were found in the recto-sigmoid colon, sigmoid colon, splenic flexure and transverse colon. Internal hemorrhoids were found during retroflexion. The hemorrhoids were Grade III (internal hemorrhoids that prolapse but require manual reduction). The endoscope was withdrawn. A hemorrhoid was isolated with anoscopy. The ShortShot ligator was positioned over the hemorrhoid at the left lateral position. Suction was applied and one rubber band was placed over the hemorrhoid. This was checked to make certain that the muscularis was free of the band. Mild oozing of blood was present. The exam was otherwise without abnormality on direct and retroflexion views. Impression: - Hemorrhoids found on perianal exam. - One 9 mm polyp in the transverse colon, removed with a hot snare. Resected and retrieved. - One 4 mm polyp in the rectum, removed with a jumbo cold forceps. Resected and retrieved. - Diverticulosis in the recto-sigmoid colon, in the sigmoid colon, at the splenic flexure and in the transverse colon. - Internal hemorrhoids. Banded. - The examination was otherwise normal on direct and retroflexion views. Recommendation: - Discharge patient to home. - Resume previous diet. - Continue present medications. - Await pathology results. - Repeat colonoscopy in 5 years for surveillance. Procedure Code(s): --- Professional --- 85454, Colonoscopy, flexible; with removal of tumor(s), polyp(s), or other lesion(s) by snare technique 61920, 59, Colonoscopy, flexible; with biopsy, single or multiple 57140, Hemorrhoidectomy, internal, by rubber band ligation(s) CPT copyright 2021 [employer]. All rights reserved. The codes documented in this report are preliminary and upon guard rail installer review may be revised to meet current compliance requirements. Chevy Almanzar DO 09/28/2024 10:04:54 AM This report has been signed electronically. Number of Addenda: 0 Note Initiated On: 09/28/2024 9:34 AM
--- NOTE | 2024-09-28 10:07 | PCM.POST.ANE ---
Anesthesia: Postop Eval I Current Vital Signs Temperature: 97 F Pulse Rate: 74 Blood Pressure: 85/61 Respiratory Rate: 16 Pulse Ox: 97 Oxygen Delivery Method: Room Air Assessment Airway patent: Yes Spontaneous unlabored respirations: Yes Mental status: Asleep nausea: No Vomiting: No Anesthesia Complication: No Fluid Hydration Crystalloid volume administer (ml): 900 Total IV fluid infused: 900 Progress Note Anesthesia document: Postop Eval 1 completed: Yes
--- NOTE | 2024-09-28 11:12 | PCM.POSTANE2 ---
Anesthesia Postop Eval I Sum Postop Eval Completion status Anesthesia document: Postop Eval 1 completed: Yes Anesthesia Postop Eval I Summary Anesthesia Postop Eval I Summary: Anesthesia Postop Eval I: Assessment Summary Airway patent Yes 09/28/24 10:08 [email or web address] Spontaneous unlabored Yes 09/28/24 10:08 [email or web address] respirations Mental status Asleep 09/28/24 10:08 [email or web address] nausea No 09/28/24 10:08 [email or web address] Vomiting No 09/28/24 10:08 [email or web address] Anesthesia Postop Eval I: Fluid Summary Crystalloid volume administer 900 09/28/24 10:08 [email or web address] (ml) Colloids volume administered ( ml) Blood Product volume administered (ml) Total IV fluid infused 900 09/28/24 10:08 [email or web address] Anesthesia Postop Eval I: Summary Notes Anesthesia Complication No 09/28/24 10:08 [email or web address] Anesthesia Complication Comment: Post-operative progress note Anesthesia: Postop Eval II Evaluation Mental status: Awake and Calm Pain Level: 0 nausea: No Vomiting: No Complications Anesthesia Complication: No
== END 2024-09-28 10:42 | disposition home or self-care (01) ==
LOC: EN 08:06 → AC 08:07
PROVIDERS: PCP Family Medicine; Referring Provider Family Medicine; Visit Provider Internal Medicine Gastroenterology
PROC: 0DJD8ZZ Inspection of Lower Intestinal Tract, Via Natural or Artificial Opening Endoscopic (ICD-10-PCS; CPT 45378; principal; 2024-09-28 09:10)
DX: K57.30 Diverticulosis of large intestine without perforation or abscess without bleeding (principal); K21.9 Gastro-esophageal reflux disease without esophagitis; F41.9 Anxiety disorder, unspecified; K64.2 Third degree hemorrhoids; K63.5 Polyp of colon; K64.8 Other hemorrhoids; K62.1 Rectal polyp; E78.00 Pure hypercholesterolemia, unspecified; G47.33 Obstructive sleep apnea (adult) (pediatric); F17.210 Nicotine dependence, cigarettes, uncomplicated; Z79.51 Long term (current) use of inhaled steroids; Z79.899 Other long term (current) drug therapy; Z86.0100 Personal history of colon polyps, unspecified
CPT/HCPCS: 45385; 45380; 46221; 88305; J2405

== ENCOUNTER → 2024-11-02 | Outpatient (CLI) | payer MEDICARE, MEDICAID, SELFPAY ==
--- NOTE | 2024-11-02 10:16 | US_ITS ---
PROCEDURE: ABDOMEN LIMITED 11/02/2024 REASON FOR EXAM: EPIGASTRIC PAIN COMPARISON: None FINDINGS: Liver: Grossly normal size and echotexture. Gallbladder: Surgically absent. Common bile duct: Normal measuring 5.6 mm . Pancreas: Normal Other: Visualized portions of the right kidney are unremarkable. No right upper quadrant ascites. US/Abdomen Limited IMPRESSION: Status post cholecystectomy. The liver is unremarkable. Reading Location: [id number]
== END | disposition home or self-care (01) ==
PROVIDERS: PCP Family Medicine; Referring Provider Nurse Practitioner Acute Care; Visit Provider Nurse Practitioner Acute Care
DX: R10.13 Epigastric pain (principal); K21.9 Gastro-esophageal reflux disease without esophagitis
CPT/HCPCS: 76705